=== PATIENT | male | born 1975 | race Two or more races ===

== ENCOUNTER 2020-03-19 13:54 | Emergency (ER) | payer SELFPAY ==
[~2020-03-19] VITALS: Ht 167.6 cm; Wt 72.6 kg
[2020-03-19 14:10] VITALS: BP 147/82
[2020-03-19] MEDS ORDERED: MECLIZINE 25 MG TAB PO ONE (14:30)
[2020-03-19 15:41] LABS: BASOPHILS % (AUTO) 0.4 % (0.0-2.0); EOSINOPHILS % (AUTO) 0.7 % (0.0-4.0); HEMATOCRIT 43.5 % (36-52); HEMOGLOBIN 14.4 g/dL (12.0-18.0); LYMPHOCYTES # (AUTO) 1.4 K/uL (2.0-11.5); LYMPHOCYTES % (AUTO) 37.7 % (20.5-51.1); MEAN CORPUSCULAR HEMOGLOBIN 29 pg (27-31); MEAN CORPUSCULAR HGB CONC 33 g/dL (33-37); MEAN CORPUSCULAR VOLUME 88.3 fL (80-94); MONOCYTES # (AUTO) 0.5 K/uL (0.8-1.0); MONOCYTES % (AUTO) 12.9 % (1.7-9.3); NEUTROPHILS # (AUTO) 1.7 K/uL (1.8-7.7); NEUTROPHILS % (AUTO) 48.3 % (42.2-75.2); PLATELET COUNT (AUTO) 263 K/uL (140-450); RED BLOOD CELL COUNT(AUTO) 4.93 MIL/uL (4.20-6.10); RED CELL DISTRIBUTION WIDTH 13.5 % (11.6-13.7); WHITE BLOOD COUNT (AUTO) 3.6 K/uL (4.8-10.8)
[2020-03-19 16:07] LABS: ALBUMIN 3.9 g/dL (3.4-5.0); ANION GAP 11.2 (8-16); CARBON DIOXIDE 30.7 mmol/L (21-32); CREATININE 1.4 mg/dL (0.6-1.3); POTASSIUM 3.9 mmol/L (3.5-5.1); TOTAL BILIRUBIN 0.3 mg/dL (0.0-1.0)
--- NOTE | 2020-03-19 16:21 | NUR ---
44 Y/O MALE BIBA W C/O SUDDEN ONSET DIZZINESS/N/V SINCE 12PM YESTERDAY. PT STATES DIZZINESS IS WORSE WHEN HE OPENS HIS EYES. VSS. RESP EVEN AND UNLABORED. NO NEURO DEFECITS NOTED AT THIS TIME. HX: NONE
[2020-03-19 16:22] VITALS: BP 147/82
--- NOTE | 2020-03-19 16:22 | NUR ---
Patient discharged with v/s stable. Written and verbal after care instructions given and explained. Patient alert, oriented and verbalized understanding of instructions. Ambulatory with steady gait. All questions addressed prior to discharge. ID band removed. Patient advised to follow up with PMD. Rx of MECLIZINE, IBUPROFEN, ZOFRAN, PROMETHAZINE given. Patient educated on indication of medication including possible reaction and side effects. Opportunity to ask questions provided and answered.
== END 2020-03-19 16:22 | disposition home or self-care (01) ==
LOC: MED 13:54
DX: U07.1 COVID-19 (principal); R42 Dizziness and giddiness
CPT/HCPCS: 80053; 85025; 99283; J8597; U0003